=== PATIENT | male | born 1955 | race Caucasian/White ===

== ENCOUNTER 2020-06-08 06:49 | Day surgery (SDC) | payer OTHER ==
[2020-06-08] MEDS ORDERED: Propofol 200 MG/20 ML SDV IV ONE (06:50)
[2020-06-08] MEDS ORDERED: Sodium Chloride 0.9% 10 ML Syringe FLUSH PRN (07:00)
[2020-06-08] MEDS: Lactated Ringers 1,000 ML IV SCH (07:35)
[2020-06-08] MEDS: Simethicone Drops 40 MG/0.6 ML 30 ML Bottle ONE (08:49)
--- NOTE | 2020-06-08 09:11 | PCM.OPNOTE ---
- General Post-Op/Procedure Note Date of Surgery/Procedure: 06/08/20 Operative Procedure(s): c scope with biopsy hot loop and cold forceps Findings: Polyps: transverse x2 descending x1 sigmoid x1 rectal x1 Pre Op Diagnosis: screening Post-Op Diagnosis: Polyps: transverse x2. descending x1. sigmoid x1. rectal x1 Primary Surgeon: Dmitri German Anesthesia Provider: Amrik Garcia Pathology: Polyps: transverse x2 descending x1 sigmoid x1 rectal x1 Complications: None Condition: Good Free Text/Narrative:: see dictation # [id number]
[2020-06-08 11:36] VITALS: BP 127/85; PULSE 71
--- NOTE | 2020-06-08 17:09 | OR ---
DATE OF OPERATION: 06/08/2020 SURGEON: Dmitri German MD PROCEDURE PERFORMED: Colonoscopy with cold forceps and hot loop snare biopsy. PREOPERATIVE DIAGNOSIS: Colon cancer screening. POSTOPERATIVE DIAGNOSIS: Transverse colon polyp x2, descending colon polyp, sigmoid colon polyp, and rectal polyp. INDICATIONS FOR PROCEDURE: This is a 64-year-old white male who presents for screening colonoscopy. He was offered and accepted the same. DESCRIPTION OF OPERATION: After an excellent IV sedation was administered, digital rectal exam was performed. No marked abnormality was noted. The flexible colonoscope was inserted and advanced to cecum. Prep was excellent. Following findings were noted. Ascending colon unremarkable. Transverse colon, 2 small 3 mm polyps were encountered. Photo was taken. Biopsies were obtained by cold forceps biopsy. Descending colon, a small polypoid lesion, again 3 to 4 mm, biopsied with cold biopsy forceps and sent for permanent. Sigmoid colon, again, small polyp biopsied with cold biopsy forceps and sent for permanent. This was approximately 2 mm in size, rectal polyp. This was a pedunculated polyp which was biopsied with the hot loop snare and submitted in 1 container. The patient tolerated the procedure well and was taken to recovery room in good condition. Results will be sent to the patient via letter. /[id number] /MODL
== END 2020-06-08 09:57 | disposition home or self-care (01) ==
LOC: FB.SDS 06:49
PROVIDERS: ATTEND Surgery
DX: Z12.11 Encounter for screening for malignant neoplasm of colon (principal); D12.3 Benign neoplasm of transverse colon; D12.4 Benign neoplasm of descending colon; D12.5 Benign neoplasm of sigmoid colon; D12.8 Benign neoplasm of rectum; E66.9 Obesity, unspecified; Z79.899 Other long term (current) drug therapy; Z88.5 Allergy status to narcotic agent; Z88.1 Allergy status to other antibiotic agents; Z90.49 Acquired absence of other specified parts of digestive tract; Z98.890 Other specified postprocedural states; Z68.38 Body mass index [BMI] 38.0-38.9, adult
CPT/HCPCS: 00812; 45380; 45385; 88305; A9270; J2704; J7120

== ENCOUNTER 2021-07-09 16:00 | Emergency (ER) | payer MEDICARE ==
[2021-07-09] MEDS ORDERED: Aspirin 81 MG Tab.Chew PO ONE (16:16)
[2021-07-09] MEDS ORDERED: Metoprolol Tartrate 50 MG Tab PO ONE (16:18)
[2021-07-09] MEDS ORDERED: Alum Hydroxide/Mag Hydroxide 15 ML, Lidocaine 2% 15 ML PO ONE ×2 (16:25)
[2021-07-09] MEDS ORDERED: Ticagrelor 90 MG Tab PO ONE (17:11)
[2021-07-09] MEDS ORDERED: Sodium Chloride 0.9% 10 ML Syringe FLUSH PRN (17:11)
[2021-07-09] MEDS ORDERED: Heparin Sodium 5,000 Units/ML Vial IVPUSH ONE (17:20)
[2021-07-09] MEDS ORDERED: Heparin Sodium/0.45% NaCl 25,000 UNITS/500 ML BAG IV SCH (17:45)
[2021-07-09 19:46] VITALS: BP 168/108; PULSE 74
== END 2021-07-09 18:30 ==
LOC: FB.ED 16:00
DX: R77.8 Other specified abnormalities of plasma proteins (principal); I25.10 Atherosclerotic heart disease of native coronary artery without angina pectoris; E66.9 Obesity, unspecified; Z88.1 Allergy status to other antibiotic agents; Z88.5 Allergy status to narcotic agent; Z91.09 Other allergy status, other than to drugs and biological substances; Z79.899 Other long term (current) drug therapy; Z68.38 Body mass index [BMI] 38.0-38.9, adult
CPT/HCPCS: 36415; 80048; 84484; 85027; 96365; 99285; A9270; J1644